=== PATIENT | male | born 1975 | race Caucasian/White ===

== ENCOUNTER 2024-07-11 12:09 | Emergency (ER) | payer BC ==
[~2024-07-11] VITALS: Ht 172.7 cm; Wt 77.3 kg
[2024-07-11 12:22] VITALS: BP 187/96; PULSE 76; RESP 18; TEMP 98.2; O2SAT 99
[2024-07-11] MEDS ORDERED: INSU100I3 SQ (15:12)
== END 2024-07-11 15:46 | disposition home or self-care (01) ==
LOC: EMS 12:09
DX: E11.65 Type 2 diabetes mellitus with hyperglycemia (principal); Z76.0 Encounter for issue of repeat prescription
CPT/HCPCS: 82962; 99282; Z7502

== ENCOUNTER 2024-07-26 12:00 | Emergency (ER) | payer BC ==
[~2024-07-26] VITALS: Ht 175.3 cm; Wt 75.0 kg
[~2024-07-26 12:00] MED LIST: INSU100I3 SQ
[2024-07-26 12:11] VITALS: BP 156/106; PULSE 84; RESP 16; TEMP 98.7; O2SAT 100
== END 2024-07-26 14:36 | disposition home or self-care (01) ==
LOC: EMS 12:00
DX: H26.8 Other specified cataract (principal); H53.8 Other visual disturbances; E11.36 Type 2 diabetes mellitus with diabetic cataract; E11.65 Type 2 diabetes mellitus with hyperglycemia; Z79.4 Long term (current) use of insulin
CPT/HCPCS: 99282; Z7502